=== PATIENT | female | born 1945 | race Caucasian/White ===

== ENCOUNTER 2017-08-26 11:40 | Emergency (ER) | payer MEDICARE ==
[~2017-08-26] VITALS: Ht 162.6 cm; Wt 105.0 kg
[2017-08-26] MEDS ORDERED: LEVOTHROID125 MCG PO (11:51)
[2017-08-26 12:22] LABS: INFLUENZA A NONE DETECTED (NONE DETECT); INFLUENZA B NONE DETECTED (NONE DETECT)
[2017-08-26 13:05] VITALS: BP 126/65
[2017-08-26] MEDS ORDERED: ZITHROMAX500 MG PO (13:08)
[2017-08-26] MEDS ORDERED: TESSALON PER100 MG PO (13:08)
[2017-08-26] MEDS ORDERED: MEDDOSEPAK PO (13:08)
[2017-08-26] MEDS ORDERED: PROAIR HFA108 MCG/AC IN (13:08)
== END 2017-08-26 13:16 | disposition home or self-care (01) ==
LOC: ED 11:40
DX: J40 Bronchitis, not specified as acute or chronic (principal); E03.9 Hypothyroidism, unspecified; E78.00 Pure hypercholesterolemia, unspecified; F17.210 Nicotine dependence, cigarettes, uncomplicated

== ENCOUNTER 2023-01-31 13:14 | Emergency (ER) | payer MEDICARE ==
[2023-01-31] VITALS (22 sets, daily range): BP systolic 68–124; BP diastolic 29–72
[~2023-01-31] VITALS: Ht 162.6 cm; Wt 82.0 kg
[~2023-01-31 13:14] MED LIST: AMOX/K CLAV875 M1 PO; LEVOTHROID125 MCG PO; MEDDOSEPAK PO; METHOCARBAMOL500 MG PO; MUCINEX600 MG PO; PERCOCET 5/325M1 TAB PO; PRAVASTATIN SOD20 MG PO; PREDNISONE50 MG PO; PROAIR HFA108 MCG/AC IN; TESSALON PER100 MG PO; TRAMADOL HCL50 MG PO; VENTOLIN HFA IN; VIBRAMYCIN100 M2 PO; VOLTAREN - GENE75 MG PO; XANAX0.5 MG PO; ZITHROMAX500 MG PO
[2023-01-31 15:43] LABS: BASO% 0.1 % (0-3); EOS% 0.4 % (0-8); HEMATOCRIT 38.6 % (37.0-47.0); HEMOGLOBIN 12.9 g/dl (12.0-16.0); IMMATURE GRANULOCYTES 0.2 % (0.0-5.0); LYMPH% 6.5 % (15-41); MEAN CELL VOLUME 91.5 fL CALC (80.0-100.0); MEAN CORPUSCULAR HGB 30.6 pG CALC (26.0-32.0); MEAN CORPUSCULAR HGB CONC 33.4 g/dL CAL (32.0-36.0); MONO% 12.4 % (2-13); NEUT# 6.79 thou/uL (2.00-7.15); NEUT% 80.4 % (42-76); RED BLOOD COUNT 4.22 mill/uL (4.20-5.60); RED CELL DISTRI WIDTH 15.2 % (11.5-15.5)
[2023-01-31] MEDS ORDERED: MS CONTIN15 M1 PO (15:46)
[2023-01-31] MEDS ORDERED: MIRALAX17 GM (15:47)
[2023-01-31] MEDS ORDERED: SENNA/DSS1 TAB PO (15:50)
[2023-01-31] MEDS ORDERED: TRAZODONE50 MG PO (15:51)
[2023-01-31] MEDS ORDERED: METHOCARBAMOL500 MG PO (15:52)
[2023-01-31] MEDS ORDERED: VENTOLIN HFA108 MCG (15:53)
[2023-01-31] MEDS ORDERED: ALPRAZOLAM0.5 M2 PO (15:54)
[2023-01-31] MEDS ORDERED: PERCOCET 10/31 COMBO PO (15:56)
[2023-01-31 16:01] LABS: ALKALINE PHOSPHATASE 143 u/l (38-126); ANION GAP 15 (6-22 (CALC)); BUN 19 mg/dL (8-23); BUN/CREATININE RATIO 33 (12-20 (CALC)); CARBON DIOXIDE 29 mmol/l (22-30); CHLORIDE 89 mmol/l (95-108); CREATININE 0.6 mg/dL (0.5-1.0); GFR FOR AFR.AMER. > 60 ML/MIN (>=60 (CALC)); GFR OTHER RACES > 60 ML/MIN (>=60 (CALC)); POTASSIUM 3.6 mmol/l (3.5-5.1); SGOT/AST 56 u/l (9-36); SODIUM 130 mmol/l (137-146)
[2023-01-31 16:10] LABS: BILIRUBIN, TOTAL 0.8 mg/dL (0.02-1.3); TOTAL PROTEIN 7.3 g/dL (6.3-8.2)
[2023-01-31 16:11] LABS: ALBUMIN 3.8 g/dL (3.2-5.0)
== END 2023-01-31 20:13 | disposition home or self-care (01) ==
LOC: ED 13:14
PROVIDERS: Family Medicine
DX: R60.9 Edema, unspecified (principal); E03.9 Hypothyroidism, unspecified; E78.5 Hyperlipidemia, unspecified; Z72.0 Tobacco use; Z20.822 Contact with and (suspected) exposure to COVID-19